=== PATIENT | female | born 1940 | race Caucasian/White ===

== ENCOUNTER 2017-04-19 10:24 | Emergency (ER) | payer MEDICARE, MEDICAID ==
--- NOTE | 2017-04-19 11:01 | C.PDOC ---
History Of Present Illness 77 year old female, whose PMHx includes HTN, presents to the ED for evaluation of cough, sinus pressure and generalized body aches which began around 1 week ago. Patient also reports chest pain when she coughs. She denies fever, shortness of breath, nausea, vomiting. Time Seen by Provider: 04/19/17 10:33 Chief Complaint (Nursing): Cough, Cold, Congestion History Per: Patient History/Exam Limitations: no limitations Onset/Duration Of Symptoms: Days (1 week) Current Symptoms Are (Timing): Still Present Location Of Pain: Sinus/es (pressure), Diffuse Myalgias Associated Symptoms: Cough. denies: Fever Ear Symptoms: Bilateral: None Additional History Per: Patient Past Medical History Reviewed: Historical Data, Nursing Documentation, Vital Signs Vital Signs: Last Vital Signs Temp 99.0 F 04/19/17 12:20 Pulse 74 04/19/17 12:20 Resp 16 04/19/17 12:20 BP 121/83 04/19/17 12:20 Pulse Ox 96 04/19/17 13:02 - Medical History PMH: Anxiety, Arthritis, HTN, Hyperlipidemia Surgical History: No Surg Hx Family History: States: Unknown Family Hx - Social History Hx Alcohol Use: No Hx Substance Use: No - Immunization History Hx Tetanus Toxoid Vaccination: No Hx Influenza Vaccination: Yes Hx Pneumococcal Vaccination: No Review Of Systems Constitutional: Negative for: Fever ENT: Positive for: Other (sinus pressure ) Cardiovascular: Positive for: Chest Pain Respiratory: Positive for: Cough. Negative for: Shortness of Breath Musculoskeletal: Positive for: Other (generalized body aches ) Physical Exam - Physical Exam Appears: Non-toxic, No Acute Distress Skin: Normal Color, Warm, Dry Head: Atraumatic, Normacephalic Eye(s): bilateral: Normal Inspection Ear(s): Bilateral: Normal Nose: Other (boggy nares) Oral Mucosa: Moist Throat: Erythema (mild), No Exudate Neck: Supple Chest: Symmetrical, No Deformity, No Tenderness Cardiovascular: Rhythm Regular, No Murmur Respiratory: Normal Breath Sounds, No Rales, No Rhonchi, No Wheezing Neurological/Psych: Normal Speech, Normal Cognition ED Course And Treatment ECG: Interpreted By Me, Viewed By Me ECG Rhythm: Sinus Rhythm Interpretation Of ECG: Normal Sinus Rhythm at 79bpm. No ST elevations or depressions. Rate From EC O2 Sat by Pulse Oximetry: 96 (on RA) Pulse Ox Interpretation: Normal - Other Rad CXR X-Ray: Interpreted by Me, Viewed By Me, Read By Radiologist Interpretation: HISTORY: cough, chest pain. COMPARISON: No prior. TECHNIQUE : Chest PA and lateral. FINDINGS: LUNGS: Possible small infiltrate or atelectasis at the lung base. 4.5 millimeter nodule at the mid right lung noted. PLEURA: No significant pleural effusion identified. No pneumothorax apparent. CARDIOVASCULAR: Cardiomegaly is noted. OSSEOUS STRUCTURES: No significant abnormalities. VISUALIZED UPPER ABDOMEN: Normal. OTHER FINDINGS: None. IMPRESSION: Questionable small infiltrate or atelectasis at the lung bases. 4.5 millimeter nodule at the mid right lung may represent granuloma. If indicated 3-6 months follow-up reassessment may be obtained Medical Decision Making Medical Decision Making: Impression: 77 year old female with cough, sinus pressure and generalized body aches Plan: * CXR * EKG * Motrin PO * Tylenol PO * reassess and disposition Progress: CXR results are unremarkable. EKG ordered and reviewed. Motrin PO and Tylenol PO administered. On reassessment, patient is resting comfortably, remains afebrile, and is stable for discharge. Patient is stable for discharge with diagnosis of Bronchitis. Patient will be given Rx for Zithromax due to age-related immunosuppression. Disposition Counseled Patient/Family Regarding: Studies Performed, Diagnosis, Need For Followup, Rx Given - Disposition Disposition: HOME/ ROUTINE Disposition Time: 12:14 Condition: STABLE Prescriptions: Azithromycin 1 tab PO DAILY #6 tab Loratadine/Pseudoephedrine [Claritin-D 24 Hour Tablet] 1 each PO DAILY #5 tab.er.24h Instructions: Acute Bronchitis (ED) Forms: [employer] (Khmer) - POA Present On Arrival: None - Clinical Impression Clinical Impression: Bronchitis, complicated - Scribe Statement The provider has reviewed the documentation as recorded by the Scribe (Rissa Anderson) Provider Attestation: All medical record entries made by the Scribe were at my direction and personally dictated by me. I have reviewed the chart and agree that the record accurately reflects my personal performance of the history, physical exam, medical decision making, and the department course for this patient. I have also personally directed, reviewed, and agree with the discharge instructions and disposition.
[2017-04-19 12:35] VITALS: BP 121/83; PULSE 74; RESP 16; TEMP 99
--- NOTE | 2017-04-19 12:41 | RAD ---
HISTORY: cough, chest pain COMPARISON: No prior. TECHNIQUE: Chest PA and lateral FINDINGS: LUNGS: Possible small infiltrate or atelectasis at the lung base. 4.5 millimeter nodule at the mid right lung noted. PLEURA: No significant pleural effusion identified. No pneumothorax apparent. CARDIOVASCULAR: Cardiomegaly is noted. OSSEOUS STRUCTURES: No significant abnormalities. VISUALIZED UPPER ABDOMEN: Normal. OTHER FINDINGS: None. IMPRESSION: Questionable small infiltrate or atelectasis at the lung bases. 4.5 millimeter nodule at the mid right lung may represent granuloma. If indicated 3-6 months follow-up reassessment may be obtained
[2017-04-19 12:51] VITALS: O2SAT 96
--- NOTE | 2017-04-21 13:15 | CARD ---
APPROVED REPORT EKG Measurement Heart [id number] <Conclusion> Normal sinus rhythm Normal ECG
== END 2017-04-19 12:21 | disposition home or self-care (01) ==
LOC: C.ER 10:24
DX: J40 Bronchitis, not specified as acute or chronic (principal)

== ENCOUNTER 2018-05-17 09:45 | Outpatient (CLI) | payer MEDICARE, MEDICAID | END 2018-05-17 09:46 | disposition home or self-care (01) | LOC: C.MAMMO 09:45 | DX: Z12.31 Encounter for screening mammogram for malignant neoplasm of breast (principal) ==